=== PATIENT | male | born 1945 | race Caucasian/White ===

== ENCOUNTER 2023-02-19 14:02 | Inpatient (IN) | payer OTHER, MEDICARE ==
[~2023-02-19] VITALS: Ht 177.8 cm; Wt 59.0 kg
[2023-02-19] MEDS ORDERED: TRAZ-182 PO (14:24)
[2023-02-19] MEDS ORDERED: SERT25TA PO (14:24)
[2023-02-19 14:45] LABS: *BILIRUBIN,URIN NEGATIVE (NEGATIVE); *BLOOD, URINE NEGATIVE (NEGATIVE); *CLARITY,URINE CLEAR (CLEAR); *COLOR,URINE YELLOW (YELLOW); *KETONES,URINE NEGATIVE (NEGATIVE); *PROTEIN,URINE NEGATIVE (NEGATIVE); *UROBILINOGEN,URINE 0.2 E.U./dl (NORMAL); LEUKOCYTE ESTERASE ,URINE NEGATIVE (NEGATIVE); NITRITE, URINE NEGATIVE (NEGATIVE); PH,URINE 7.5 (5.0-8.0); UGLUCOSE NEGATIVE (NEGATIVE)
[2023-02-19 14:59] LABS: BASOPHILS # (AUTO) 0.1 K/UL (0.0-0.2); BASOPHILS % (AUTO) 1.1 % (0.0-2.0); EOSINOPHILS # (AUTO) 0.3 K/uL (0.0-0.7); EOSINOPHILS % (AUTO) 5.1 % (0.0-7.0); HEMATOCRIT 41.2 % (36.7-47.1); HEMOGLOBIN 13.6 g/dL (12.5-16.3); LYMPHOCYTES # (AUTO) 1.4 K/uL (0.8-4.8); LYMPHOCYTES % (AUTO) 23.3 % (20.5-51.5); MEAN CORPUSCULAR HEMOGLOBIN 32.4 uug (23.8-33.4); MEAN CORPUSCULAR HGB CONC 33 g/dL (32.5-36.3); MEAN CORPUSCULAR VOLUME 97.9 fL (73.0-96.2); MONOCYTES # (AUTO) 0.9 K/uL (0.1-1.30); MONOCYTES % (AUTO) 14.4 % (0.0-11.0); NEUTROPHILS # (AUTO) 3.4 K/uL (1.8-8.9); NEUTROPHILS % (AUTO) 56.1 % (38.5-71.5); PLATELET COUNT (AUTO) 215 K/uL (152-348); RED BLOOD CELL COUNT(AUTO) 4.21 MIL/uL (4.06-5.63); RED CELL DISTRIBUTION WIDTH 14.8 % (12.1-16.2)
[2023-02-19 15:01] LABS: *AMPHETAMINE, URINE NEGATIVE (NEGATIVE); *BARBITURATE, URINE NEGATIVE (NEGATIVE); *BENZODIAZEPINE, URINE NEGATIVE (NEGATIVE); *CANNABINOID, URINE NEGATIVE (NEGATIVE); *COCCAINE, URINE NEGATIVE (NEGATIVE); *OPIATE, URINE NEGATIVE (NEGATIVE); *PHENCYCLIDINE SCREEN,URINE NEGATIVE (NEGATIVE); FENTANYL, URINE NEGATIVE (NEGATIVE)
[2023-02-19 15:10] LABS: CALCIUM 9.3 mg/dL (8.5-10.1); CARBON DIOXIDE 29 mmol/L (21-32); CHLORIDE 103 mmol/L (98-107); CREATININE 0.8 mg/dL (0.6-1.3); GLUCOSE 96 mg/dL (74-106); SODIUM SERUM 138 mmol/L (136-145); UREA NITROGEN, BLOOD 26 mg/dL (7-18)
[2023-02-19 15:14] LABS: ETHANOL < 3 MG/DL (0-10)
[2023-02-19 15:20] LABS: ALANINE AMINOTRANSFERASE 38 U/L (16-63); ALBUMIN 3.4 g/dL (3.4-5.0); ALKALINE PHOSPHATASE 77 U/L (50-136); ASPARTATE AMINOTRANSFERASE 22 U/L (15-37); BILIRUBIN,DIRECT 0.1 mg/dL (0.0-0.2); BILIRUBIN,TOTAL 0.2 mg/dL (0.2-1.0); CREATINE KINASE, TOTAL 34 U/L (39-308); THYROID STIMULATING HORMONE 2.329 mIU/mL (0.358-3.740); TOTAL PROTEIN, SERUM 6.7 g/dL (6.4-8.2)
[2023-02-19 15:27] LABS: ACETAMINOPHEN < 2.0 ug/mL (10-30)
[2023-02-19] MEDS ORDERED: BLOOD SUGAR DIAGNOSTIC 1 EACH STRIP VI ONE (16:45)
[2023-02-19] MEDS ORDERED: LORAZEPAM 0.5 MG TABLET PO PRN (16:45)
[2023-02-19] MEDS ORDERED: ACETAMINOPHEN 325 MG TABLET PO PRN (16:45)
[2023-02-19] MEDS ORDERED: MAG HYDROX/AL HYDROX/SIMETH 30 ML LIQUID UDC PO PRN (16:45)
[2023-02-19] MEDS ORDERED: MAGNESIUM HYDROXIDE 30 ML LIQUID UDC PO PRN (16:45)
[2023-02-19 17:35] VITALS: BP 169/80; TEMP 97.8; O2SAT 98
[2023-02-19 20:10] VITALS: BP 153/76; TEMP 98.2; O2SAT 97
[2023-02-19] MEDS: ZOLPIDEM 5 MG TABLET PO PRN (23:59)
[2023-02-20 08:17] VITALS: BP 132/72; TEMP 98.2; O2SAT 100
[2023-02-20 08:39] LABS: ALANINE AMINOTRANSFERASE 37 U/L (16-63); ALKALINE PHOSPHATASE 67 U/L (50-136); ASPARTATE AMINOTRANSFERASE 24 U/L (15-37); BILIRUBIN,TOTAL 0.3 mg/dL (0.2-1.0); CALCIUM 8.9 mg/dL (8.5-10.1); CARBON DIOXIDE 27 mmol/L (21-32); CHLORIDE 102 mmol/L (98-107); GLUCOSE 92 mg/dL (74-106); SODIUM SERUM 135 mmol/L (136-145); TOTAL PROTEIN, SERUM 6.1 g/dL (6.4-8.2); UREA NITROGEN, BLOOD 28 mg/dL (7-18)
[2023-02-20] MEDS ORDERED: LORAZEPAM 0.5 MG TABLET PO PRN (09:15)
[2023-02-20] MEDS: NICOTINE 14 MG/24HR PATCH TD SCH (09:29)
[2023-02-20] MEDS ORDERED: INFLUENZA VACCINE 2023-2024 0.5 ML DISP.SYRIN IM ONE (10:00)
[2023-02-20] MEDS: VENLAFAXINE XR 75 MG TAB.ER.24H PO SCH (10:05)
[2023-02-20 15:13] VITALS: BP 162/72; TEMP 98; O2SAT 100
[2023-02-20 20:07] VITALS: BP 132/74; TEMP 98.3; O2SAT 99
[2023-02-20] MEDS: LORAZEPAM 1 MG TABLET PO PRN (20:57)
[2023-02-20] MEDS: QUETIAPINE FUMARATE 25 MG TABLET PO SCH (20:57)
[2023-02-20] MEDS: ZOLPIDEM 5 MG TABLET PO PRN (22:36)
[2023-02-21 08:10] VITALS: BP 141/72; TEMP 98.4; O2SAT 99
[2023-02-21] MEDS: NICOTINE 14 MG/24HR PATCH TD SCH (09:14)
[2023-02-21] MEDS: VENLAFAXINE XR 75 MG TAB.ER.24H PO SCH (09:14)
[2023-02-21 15:29] VITALS: BP 152/74; TEMP 98; O2SAT 99
[2023-02-21 19:56] VITALS: BP 156/72; TEMP 98.1; O2SAT 100
[2023-02-21] MEDS: QUETIAPINE FUMARATE 25 MG TABLET PO SCH (20:37)
[2023-02-21] MEDS: LORAZEPAM 1 MG TABLET PO PRN (20:37)
[2023-02-21] MEDS: ZOLPIDEM 5 MG TABLET PO PRN (23:08)
[2023-02-22 08:04] VITALS: BP 129/70; TEMP 98.4; O2SAT 97
[2023-02-22] MEDS: NICOTINE 14 MG/24HR PATCH TD SCH (08:47)
[2023-02-22] MEDS: VENLAFAXINE XR 75 MG TAB.ER.24H PO SCH (08:47)
[2023-02-22 16:10] VITALS: BP 144/65; TEMP 98; O2SAT 98
[2023-02-22 20:00] VITALS: BP 136/78; TEMP 98.4; O2SAT 99
[2023-02-22] MEDS: LORAZEPAM 1 MG TABLET PO PRN (20:31)
[2023-02-22] MEDS: QUETIAPINE FUMARATE 25 MG TABLET PO SCH (20:31)
[2023-02-23 08:14] VITALS: BP 140/62; TEMP 98; O2SAT 98
[2023-02-23] MEDS: NICOTINE 14 MG/24HR PATCH TD SCH (08:33)
[2023-02-23] MEDS: VENLAFAXINE XR 75 MG TAB.ER.24H PO SCH (08:33)
[2023-02-23 16:54] VITALS: BP 134/83; TEMP 98.1; O2SAT 98
[2023-02-23 20:00] VITALS: BP 114/63; TEMP 98.3; O2SAT 98
[2023-02-23] MEDS: QUETIAPINE FUMARATE 25 MG TABLET PO SCH (20:33)
[2023-02-23] MEDS: LORAZEPAM 1 MG TABLET PO PRN (20:33)
[2023-02-23] MEDS: ZOLPIDEM 5 MG TABLET PO PRN (22:53)
[2023-02-24 08:06] VITALS: BP 131/72; TEMP 98; O2SAT 99
[2023-02-24 08:08] VITALS: BP 131/72; TEMP 98; O2SAT 99
[2023-02-24] MEDS: VENLAFAXINE XR 75 MG TAB.ER.24H PO SCH (08:34)
[2023-02-24] MEDS: NICOTINE 14 MG/24HR PATCH TD SCH (08:35)
[2023-02-24] MEDS: BENAZEPRIL HCL 5 MG TABLET PO SCH (09:36)
[2023-02-24 15:13] VITALS: BP 129/71; TEMP 98; O2SAT 99
[2023-02-24 20:00] VITALS: BP 147/76; TEMP 98.1; O2SAT 99
[2023-02-24] MEDS: QUETIAPINE FUMARATE 25 MG TABLET PO SCH (20:57)
[2023-02-24] MEDS: ZOLPIDEM 5 MG TABLET PO PRN (22:07)
[2023-02-25 08:15] VITALS: BP 133/75; TEMP 98.2; O2SAT 98
[2023-02-25 08:16] VITALS: BP 141/68
[2023-02-25] MEDS: BENAZEPRIL HCL 5 MG TABLET PO SCH (08:16)
[2023-02-25] MEDS: NICOTINE 14 MG/24HR PATCH TD SCH (08:17)
[2023-02-25] MEDS: VENLAFAXINE XR 75 MG TAB.ER.24H PO SCH (08:17)
== END 2023-02-25 12:30 | DRG 885 ==
LOC: ER 14:02 → GPS 15:42
PROVIDERS: ADMIT Psychiatry & Neurology Psychiatry; ATTEND Internal Medicine
DX: F33.3 Major depressive disorder, recurrent, severe with psychotic symptoms (principal); E43 Unspecified severe protein-calorie malnutrition; R45.851 Suicidal ideations; Z68.1 Body mass index [BMI] 19.9 or less, adult; R64 Cachexia; Z59.00 Homelessness unspecified; R62.7 Adult failure to thrive; F41.9 Anxiety disorder, unspecified; G47.00 Insomnia, unspecified; G89.29 Other chronic pain; I10 Essential (primary) hypertension; Z20.822 Contact with and (suspected) exposure to COVID-19; Z79.899 Other long term (current) drug therapy; M19.90 Unspecified osteoarthritis, unspecified site; F29 Unspecified psychosis not due to a substance or known physiological condition; Z73.6 Limitation of activities due to disability; F17.210 Nicotine dependence, cigarettes, uncomplicated; F10.21 Alcohol dependence, in remission
CPT/HCPCS: 36415; 71045; 82652; 84443; 85025; 90686; G0480